=== PATIENT | male | born 1965 | race American Indian/Alaskan Native ===

== ENCOUNTER 2016-06-23 14:43 | Emergency (ER) | payer OTHER ==
--- NOTE | 2016-06-23 15:35 | PDOC ---
History of Present Illness - General History Source: Patient Exam Limitations: No Limitations - History of Present Illness Initial Comments: 06/23/16 15:54 The patient is a 50 year old male, with a significant past medical history of recurrent strep throat since age 17, who presents to the emergency department with sore throat since yesterday. He also reports fever, chills, body aches and headache associated with his chief complaint.He notes that he took Theraflu without any significant change. He describes the headache as ranging from mild to moderate, without radiation or modifying factors. The patient denies chest pain, shortness of breath, and dizziness. Denies nausea , vomit, diarrhea and constipation. Denies dysuria, frequency, urgency and hematuria. Allergies: None Past surgical history: None reported Social history: No alcohol, tobacco or drug use reported <Efrain Faust - Last Filed: 06/23/16 15:54> - General History Source: Patient Exam Limitations: No Limitations <Vidhya Willis - Last Filed: 06/24/16 12:50> - General Chief Complaint: Sore Throat Stated Complaint: SORE THROAT Time Seen by Provider: 06/23/16 14:52 Past History <Efrain Faust - Last Filed: 06/23/16 15:54> <Vidhya Willis - Last Filed: 06/24/16 12:50> - Past Medical History Allergies/Adverse Reactions: Allergies Allergy/AdvReac Type Severity Reaction Status Date / Time No Known Allergies Allergy Verified 06/23/16 14:46 Home Medications: Ambulatory Orders Pheniramine/PE/Acetaminophen [Theraflu Flu & Sore Throat] 1 each PO DAILY Review of Systems - Review of Systems Able to Perform ROS?: Yes Comments:: 06/23/16 15:55 GENERAL/CONSTITUTIONAL: +Fever, chills, bodyache. No: weakness, loss of appetite. HEAD, EYES, EARS, NOSE AND THROAT: No: change in vision, ear pain, discharge, sore throat, throat swelling. CARDIOVASCULAR: No: chest pain, lightheadedness, palpitations, syncope RESPIRATORY: No: cough, shortness of breath, wheezing, hemoptysis, stridor. GASTROINTESTINAL: No: nausea, vomiting, abdominal cramping, diarrhea, rectal bleeding, constipation. GENITOURINARY: No: dysuria, hematuria, frequency, urgency, flank pain. MUSCULOSKELETAL: No: back pain, neck pain, joint pain, muscle swelling or pain SKIN AND BREASTS: No: lesions, pallor, rash or easy bruising. NEUROLOGIC: +Headache. No: vertigo, paresthesias, weakness ENDOCRINE: No: unexplained weight gain or loss HEMATOLOGIC/LYMPHATIC: No: anemia, easy bleeding, swelling nodes <Efrain Faust - Last Filed: 06/23/16 15:54> *Physical Exam - Vital Signs Last Vital Signs Temp Pulse Resp BP Pulse Ox 100.1 F H 120 H 16 147/94 99 06/23/16 15:27 06/23/16 15:27 06/23/16 15:27 06/23/16 15:27 06/23/16 15:27 - Physical Exam Comments: 06/23/16 15:55 GENERAL: The patient is in no acute distress. HEAD: Normal with no signs of trauma. EYES: PERRLA, EOMI, sclera anicteric, conjunctiva clear. ENT: Ears normal, nares patent. +Erythematous oropharynx. Mild exudates on tonsil, uvula midline, Moist mucous membranes. NECK: Normal range of motion, supple without lymphadenopathy, JVD, or masses. LUNGS: Breath sounds equal, clear to auscultation bilaterally. No wheezes, and no crackles. HEART:Regular rate and rhythm, normal S1 and S2 without murmur, rub or gallop. ABDOMEN: Soft, nontender, normoactive bowel sounds. No guarding, no rebound. EXTREMITIES: Normal range of motion, no edema. No clubbing or cyanosis. No erythema, or tenderness. NEUROLOGICAL: Cranial nerves II through XII grossly intact. Normal speech. No focal neurological deficits. MUSCULOSKELETAL: Back non-tender to palpation, no CVA tenderness SKIN: Warm, Dry, normal turgor, no rashes or lesions noted. <Efrain Faust - Last Filed: 06/23/16 15:54> Medical Decision Making - Medical Decision Making 06/23/16 15:35 A portion of this note was documented by scribe services under my direction. I have reviewed the details of the note, within reason, and agree with the documentation with the following case summary and management plan written by me. Nursing documentation reviewed and incorporated into medical decision making 06/23/16 16:29 This is a 50 yo M with a history of strep pharyngitis in the past Presenting to the ER with Fever, Throat Pain, anterior cervical lymphadenopathy , absence of cough No drooling No vocal changes No pain with neck motion No evidence at this time of SPECIAL [employer] PERSON Will send rapid strep Pt rapid strep negative Will give Decadron, motrin, bicillin Will ask pt to follow up with PMD and ENT Return to the ER for any other concerns or complaints <Vidhya Willis - Last Filed: 06/24/16 12:50> *DC/Admit/Observation/Transfer - Attestations Scribe Attestion: 06/23/16 15:55 Documentation prepared by Efrain Faust, acting as medical psychotherapist for Vidhya Willis MD. <Efrain Faust - Last Filed: 06/23/16 15:54> - Discharge Dispostion Admit: No <Vidhya Willis - Last Filed: 06/24/16 12:50> Diagnosis at time of Disposition: Pharyngitis Qualifiers: Pharyngitis/tonsillitis etiology: other specified organisms Qualified Code(s): J02.8 - Acute pharyngitis due to other specified organisms - Discharge Dispostion Disposition: HOME Condition at time of disposition: Stable - Referrals Referrals: Antwon Sosa [Primary Care Provider] - - Patient Instructions Printed Discharge Instructions: DI for Pharyngitis/Tonsillopharyngitis -- Adult Additional Instructions: Spring Thank you for coming to the ER today Please take motrin or tylenol as needed for fever or pain Please stay hydrated Return to the ER for any other concerns or complaints
[2016-06-23 15:36] VITALS: BP 147/94; PULSE 120; TEMP 100.1; BMI 29.2
[2016-06-23] MEDS ORDERED: IBUPROFEN 600 MG TABLET (FP) PO ONE ×2 (15:36→16:40)
[2016-06-23] MEDS ORDERED: DEXAMETHASONE 4 MG TABLET (FP) PO ONE (15:43)
[2016-06-23] MEDS ORDERED: PENICILLIN G BENZATHINE 1,200,000 UNIT/2 ML PFS IM ONE (16:13)
[2016-06-23] MEDS ORDERED: PENICILLIN G BENZATHINE 2,400,000 UNIT/4 ML PFS ONE (16:41)
[2016-06-23] MEDS ORDERED: DEXAMETHASONE 4 MG TABLET (FP) ONE (16:41)
== END 2016-06-23 18:33 | disposition home or self-care (01) ==
LOC: FER 14:43
DX: J02.8 Acute pharyngitis due to other specified organisms (principal)
CPT/HCPCS: 87070; 87077; 87430; 99282-25